=== PATIENT | male | born 1980 | race American Indian/Alaskan Native ===

== ENCOUNTER 2018-01-23 13:41 | Emergency (ER) | payer MEDICAID, OTHER ==
[2018-01-23 13:46] VITALS: BP 135/90; PULSE 92; RESP 18; TEMP 97.8; O2SAT 98
--- NOTE | 2018-01-23 13:59 | C.PDOC ---
History Of Present Illness 37 y/o male presents to the ER complaining of right-sided dental pain and swelling for the past 2 days. Patient states he took Motrin w/o relief. Patient reports that he has a dental appointment in 4 days. He denies having fever, difficulty breathing, difficulty swallowing. Time Seen by Provider: 01/23/18 13:52 Chief Complaint (Nursing): Dental Pain History Per: Patient History/Exam Limitations: no limitations Onset/Duration Of Symptoms: Days Current Symptoms Are (Timing): Still Present Severity: Moderate Past Medical History Reviewed: Historical Data, Nursing Documentation, Vital Signs Vital Signs: Last Vital Signs Temp 97.8 F 01/23/18 13:43 Pulse 92 H 01/23/18 13:43 Resp 18 01/23/18 13:43 BP 135/90 01/23/18 13:43 Pulse Ox 98 01/23/18 15:42 - Medical History PMH: Bronchitis Surgical History: No Surg Hx Family History: States: No Known Family Hx, Unknown Family Hx - Social History Hx Alcohol Use: Yes Hx Substance Use: Yes - Immunization History Hx Tetanus Toxoid Vaccination: No Hx Influenza Vaccination: No Hx Pneumococcal Vaccination: No Review Of Systems Except As Marked, All Systems Reviewed And Found Negative. Constitutional: Negative for: Fever, Chills ENT: Positive for: Mouth Pain (right-sided dental pain) Physical Exam - Physical Exam Appears: Non-toxic, No Acute Distress Skin: Normal Color, Warm, Dry Head: Atraumatic, Normacephalic Eye(s): bilateral: Normal Inspection, EOMI Nose: Normal Oral Mucosa: Moist Teeth: Tender To Palpation ((+) right mandibular wisdom tooth) Gingiva: No Erythema, Swelling (mild swelling), Tender, No Abscess Throat: Normal, No Erythema, No Exudate Neck: Normal ROM, Supple Chest: Symmetrical Cardiovascular: Rhythm Regular Respiratory: Normal Breath Sounds, No Rales, No Rhonchi, No Wheezing Extremity: Normal ROM Neurological/Psych: Oriented x3, Normal Speech ED Course And Treatment O2 Sat by Pulse Oximetry: 98 (RA) Pulse Ox Interpretation: Normal Progress Note: Patient given Toradal IM and Amoxicillin PO. Patient instructed to follow up with dentist in 2-5 days. Disposition - Disposition Disposition: HOME/ ROUTINE Disposition Time: 14:07 Condition: STABLE Additional Instructions: Please follow up with your dentist 2-5 days for further evaluation. Give your child medications as prescribed. Return to the emergency department at any time if symptoms persist or worsen. Prescriptions: Amoxicillin 875 mg PO BID #14 tablet traMADol [Ultram] 50 mg PO Q8 #15 tab Instructions: Dental Pain (DC) Forms: [facility] (Japanese) - Clinical Impression Clinical Impression: Pain, dental
== END 2018-01-23 14:28 | disposition home or self-care (01) ==
LOC: C.ER 13:41
DX: K08.89 Other specified disorders of teeth and supporting structures (principal)
CPT/HCPCS: 96372; 99283; J1885